=== PATIENT | female | born 1980 | race Caucasian/White ===

== ENCOUNTER 2017-03-30 19:49 | Emergency (ER) | payer OTHER ==
[~2017-03-30] VITALS: Ht 157.5 cm; Wt 81.6 kg
[~2017-03-30 19:49] MED LIST: CALC-98 PO; CYCL5TAB PO; HYDR-2758 PO; IBUP-1060 PO; POLY17PO29 PO; SULF1TAB24 PO
[2017-03-30 19:59] VITALS: BP 125/83
[2017-03-30] MEDS ORDERED: NAPR500T PO (20:34)
[2017-03-30] MEDS ORDERED: CYCL10TA2 PO (20:34)
--- NOTE | 2017-03-30 20:35 | PHYS DOC ---
Past Medical History Past Medical History: No Pertinent History Past Surgical History: Tubal ligation Alcohol Use: None Drug Use: None Adult General Chief Complaint Chief Complaint: LOWER BACK PAIN OR INJURY HPI HPI Patient is a 36 year old female presents to the emergency department with complaints of chronic back pain. She is requesting pain medications. She is previously been under the care of the pain management group in [facility] but states that 3 months ago she had a baby and has been out of that practice for one year secondary to . She reports that she has appointment with her primary care provider in 3 weeks. Review of Systems Review of Systems Constitutional: Denies fever or chills [] Eyes: Denies change in visual acuity, redness, or eye pain [] HENT: Denies nasal congestion or sore throat [] Respiratory: Denies cough or shortness of breath [] Cardiovascular: No additional information not addressed in HPI [] GI: Denies abdominal pain, nausea, vomiting, bloody stools or diarrhea [] : Denies dysuria or hematuria [] Musculoskeletal: Back pain Integument: Denies rash or skin lesions [] Neurologic: Denies headache, focal weakness or sensory changes [] Endocrine: Denies polyuria or polydipsia [] Allergies Allergies Allergies Coded Allergies Type Severity Reaction Last Updated Verified methocarbamol Allergy Unknown rash 10/08/14 Yes Physical Exam Physical Exam Constitutional: Well developed, well nourished, no acute distress, non-toxic appearance. [] HENT: Normocephalic, atraumatic, bilateral external ears normal, oropharynx moist, no oral exudates, nose normal. [] Eyes: PERRLA, EOMI, conjunctiva normal, no discharge. [] Neck: Normal range of motion, no tenderness, supple, no stridor. [] Cardiovascular:Heart rate regular rhythm, no murmur [] Lungs & Thorax: Bilateral breath sounds clear to auscultation [] Abdomen: Bowel sounds normal, soft, no tenderness, no masses, no pulsatile masses. [] Skin: Warm, dry, no erythema, no rash. [] Back: Diffuse tenderness in lumbar area without midline tenderness. Negative straight raise leg test. No saddle anesthesia. Her muscle strength is 5 over 5. Extremities: No tenderness, no cyanosis, no clubbing, ROM intact, no edema. [] Neurologic: Alert and oriented X 3, normal motor function, normal sensory function, no focal deficits noted. [] Psychologic: Affect normal, judgement normal, mood normal. [] Current Patient Data Vital Signs Vital Signs Date Time Temp Pulse Resp B/P (MAP) Pulse Ox O2 Delivery O2 Flow Rate FiO2 03/30/17 19:59 98.0 93 18 98 Room Air 98.0 EKG EKG [] Radiology/Procedures Radiology/Procedures [] Course & Med Decision Making Course & Med Decision Making Pertinent Labs and Imaging studies reviewed. (See chart for details) [] Dragon Disclaimer Dragon Disclaimer This electronic medical record was generated, in whole or in part, using a voice recognition dictation system. Departure Departure Impression: Primary Impression: Chronic back pain Disposition: HOME, SELF-CARE Condition: STABLE Referrals: WILLIAM HADDAD MD (PCP) Patient Instructions: Chronic Back Pain Scripts Naproxen (NAPROSYN) 500 Mg Tablet 500 MG PO BID, #20 TAB Prov: ANGEL MCELROY APRN 03/30/17 Cyclobenzaprine Hcl (CYCLOBENZAPRINE HCL) 10 Mg Tablet 10 MG PO TID, #30 TAB Prov: ANGEL MCELROY APRN 03/30/17 Problem Qualifiers Primary Impression: Chronic back pain Back pain location: low back pain Back pain laterality: bilateral Sciatica presence: without sciatica Qualified Codes: M54.5 - Low back pain; G89.29 - Other chronic pain ANGEL MCELROY APRN Mar 30, 2017 20:35
[2017-03-30] MEDS ORDERED: HYDROcodone/APAP 5/325MG 1 TAB TABLET PO ONE (20:45)
== END 2017-03-30 20:45 | disposition home or self-care (01) ==
LOC: ER 19:49
DX: G89.29 Other chronic pain (principal); M54.5 Low back pain; Z88.8 Allergy status to other drugs, medicaments and biological substances
CPT/HCPCS: 99283

== ENCOUNTER → 2017-05-12 | Outpatient (CLI) | payer OTHER ==
[~2017-05-12] MED LIST changes: +CYCL10TA2 PO; +NAPR500T PO
--- NOTE | 2017-05-12 17:05 | KCIC ---
MRI Lumbar Spine without contrast History: Lumbar radiculopathy, low back pain with right radiculopathy for a few months Technique: Multiplanar, multi sequential noncontrast MR imaging was performed of the lumbar spine. Contrast: None Comparison: March 28, 2015 Findings: Lumbar vertebral body stature is preserved. AP alignment is within normal limits. There is a fairly advanced degenerative disc disease at L5-S1 somewhat greater than previously. Conus terminates normally at L1-2. Trace inferior L5 endplate edema is likely reactive/degenerative in etiology. L1-L2: Neural foramina and spinal canal are adequate. L2-L3: Spinal canal and neural foramina are adequate. L3-L4: Neural foramina and spinal canal are adequate. There is mild buckling of the ligamentum flavum. L4-L5: There is mild buckling of the ligamentum flavum. Spinal canal and neural foramina are adequate. L5-S1: There is residual minimal disc osteophyte complex and shallow broad posterior bulge/protrusion. Previously there was more prominent protrusion/extrusion which is no longer seen. There is no significant displacement of the descending S1 nerve roots, light contact of the ventral surfaces. There is more prominent bulge/protrusion in the inferior right neural foramen with increased mild to moderate narrowing. There is also relatively greater degree of mild/moderate narrowing of the left neural foramen by disc osteophyte complex and facet. Impression: 1. There is minimal disc osteophyte complex and bulge/protrusion at L5-S1 near descending S1 nerve roots without displacement, previously seen protrusion/extrusion at this level no longer visualized. This is greater degree of L5-S1 degenerative disc disease. There is also increased mild to moderate L5-S1 neural foramina compromise. Electronically signed by: Talha Lambert MD (05/12/2017 5:01 PM) [id number]
== END | disposition home or self-care (01) ==
LOC: KCIC MRI 16:18
PROVIDERS: ATTEND Family Medicine
DX: M51.37 Other intervertebral disc degeneration, lumbosacral region (principal); M54.16 Radiculopathy, lumbar region
CPT/HCPCS: 72148